=== PATIENT | male | born 1960 | race Caucasian/White ===

== ENCOUNTER 2016-04-01 17:04 | Inpatient (IN) | payer OTHER ==
[~2016-04-01] VITALS: Ht 170.2 cm; Wt 58.8 kg
--- NOTE | ~2016-04-01 | EKG ---
[address] [place] [address] ELECTROCARDIOGRAM REPORT Name: INDER MARS Room #: 460-P [facility] IN .R.#: [id number] Admission: 04/01/16 Attend Phys: Jason Delvalle MD Discharge: Date of : 56 Report #: [id number] THIS REPORT FOR: //name// [facility] ED Test Date: 2016-04-01 Test Time: 17:32:18 Pat Name: INDER MARS Department: Room: [facility] Gender: M Flavorings Compounder: Alton MENDOZA : 1960 Requested By: Ervin Feng Order Number: [id number] MD: Hector Hernández Measurements Intervals [place] Rate: 61 P: -3 RI: 189 QRS: 56 QRSD: 197 T: 223 QT: 508 QTc: 512 Interpretive Statements Sinus rhythm Left bundle branch block Compared to ECG 01/09/2016 15:22:15 Atrial premature complex(es) no longer present Electronically Signed On 04-02-2016 7:37:35 GRADES 9 THROUGH 12 TEACHER by Hector Hernández [email or web address] <ELECTRONICALLY SIGNED> By: Hector Hernández MD, [facility] 04/02/16 0737 31 31 Hector Hernández MD, [facility] /EPI
--- NOTE | ~2016-04-01 | HC ---
[facility] [place] [address] CONSULTATION Name: INDER MARS Jamey Room #: 460-P [facility] IN ..#: [id number] Admission: 04/01/16 Attend Phys: Brandon Whalen MD Discharge: Date of : 56 Report #: [id number] THIS REPORT FOR: //name// CC: Brandon Pinto REASON FOR CONSULTATION: Status post kidney transplantation. REASON FOR PRESENTATION: Back pain. HISTORY OF PRESENT ILLNESS: The patient is well known to me. He is a 55-year-old with previous history of Fabry's disease. He ended up with kidney transplantation 20 years ago. This was attributed to his Fabry's disease. Unfortunately, he has a history of noncompliance with his medications and had repeated strokes and hemiparesis. He was discharged from the hospital back in 12/2015 after staying in the rehab facility. He presented to the emergency room yesterday complaining of left-sided back and hip pain. He stated this back pain started a few days ago and was associated with radiation of the pain to the lower extremities. He denies any previous similar episodes. No reported urinary symptoms in the form of frequency, urgency or hesitancy. He was admitted for further evaluation and management of his back pain. We were consulted to manage his kidney transplantation. As I have stated, he is stable kidney transplant patient for the last 20 years. PAST MEDICAL HISTORY: 1. Fabry's disease. 2. Status post kidney transplantation. 3. Seizure disorder. 4. Remote history of CVAs. 5. Coronary artery disease. 6. Residual weakness. 7. Dysarthria. PAST SURGICAL HISTORY: 1. Right-sided Port-A-Cath. 2. Kidney transplantation in 1995. 3. AV fistula in the past. ALLERGIES: PENICILLIN. HOME MEDICATIONS: 1. Percocet. 2. Eliquis. 3. Aspirin. 4. Atorvastatin. 5. Cyclosporine. 6. Prednisone. [address] [address] CONSULTATION Name: INDER MARS Room #: 460-P [facility] IN [facility]#: [id number] Admission: 04/01/16 Attend Phys: Brandon Whalen MD Discharge: Date of : 56 Report #: [id number] FAMILY HISTORY: Very significant for Fabry's disease. REVIEW OF SYSTEMS: GENERAL: No fever or chills. CARDIOVASCULAR: No chest pain or palpitation. PULMONARY: No cough or hemoptysis. GASTROINTESTINAL: No nausea or vomiting. GENITOURINARY: No frequency, no urgency. PHYSICAL EXAMINATION: GENERAL: He is alert, oriented, in no apparent distress. VITAL SIGNS: Blood pressure is 124/86 and temperature is 36.7. HEAD AND NECK: No jugular venous distention, no bruit, no thyromegaly. CHEST: Clear to auscultation bilaterally. CARDIOVASCULAR: Regular, with no rub detected. ABDOMEN: Soft, nontender with no hepatosplenomegaly. LOWER EXTREMITIES: No edema. He has a right-sided Port-A-Cath. NEUROLOGIC: Residual right-sided weakness. LABORATORY DATA: Laboratory values reviewed. Creatinine is stable at 0.9. BNP is elevated. Chest x-ray, thoracic and lumbar spine were reviewed. ASSESSMENT, IMPRESSION AND PLAN: 1. Status post kidney transplantation. 2. Fabry's disease with multiple cerebrovascular accidents. 3. Coronary artery disease. 4. New back pain. 5. Images did not reveal any abnormalities and I am not really sure about the source of his back pain. 6. From the renal perspective, he is stable. We will continue with the same regimen for now. However, I have to verify the dose of his Sandimmune as he is currently on a very high dose of cyclosporine and this will need to be addressed. 7. I would not put much weight on his elevated BNP as he currently does not have any evidence of fluid overload. 8. Continue with other home medications. 9. Stable from my side to be discharged home if workup is nonrevealing. <ELECTRONICALLY SIGNED> By: Brianna Tanner MD 04/02/16 1030 0921 0958 Brianna Tanner MD /nt
[~2016-04-01 17:04] MED LIST: APAP500 PO; ASPIRIN325 PO; ATIVAN0.5 MG PO; BUTALB-APAP-CA1 EACH PO; CLARITIN10 MG PO; COUMADIN 5 MG TA5 M1 PO; CYCLOSPORINE25 MG PO; IMDUR 30 MG TAB30 M1 PO; LEXAPRO 10 MG T10 MG PO; MUCINEX TA600 MG/TA2 PO; NORVASC10 MG PO; NORVASC5 MG PO; OXYCODONE HCL 55 MG PO; PREDNISONE 5 MG5 M1 PO; ROBAXIN 750 MG750 M1 PO; TEGRETOL XR100 MG PO; TEGRETOL200 MG PO; VENTOLIN HFA 1818 GM INH; ZANTAC 150MG T150 MG PO; ZOCOR20 MG PO
[2016-04-01 17:06] VITALS: BP 142/76
[2016-04-01 18:04] LABS: ABSOLUTE NEUTROPHILS 3.8 thou/uL (1.4-8.2); BASOPHILS 0.7 % (0.0-2.0); EOSINOPHILS 1.1 % (0.0-3.0); HEMATOCRIT 36.7 % (42.0-52.0); HEMOGLOBIN 12.6 gm/dL (14.0-18.0); LYMPHOCYTES 21.9 % (24.0-44.0); MCH 30.5 pg (26.0-34.0); MCHC 34.3 % (28.0-37.0); MCV 88.8 fL (80.0-100.0); MONOCYTES 6.5 % (1.0-8.0); PLATELET COUNT 157 thou/uL (150-400); POLYS 69.8 % (36.0-66.0); RBC 4.13 mil/uL (4.50-6.00); RDW 16.7 % (10.5-14.5); WBC 5.5 thou/uL (4.0-11.0)
[2016-04-01 18:06] LABS: MANUAL DIFF NO
[2016-04-01 18:09] LABS: CALCIUM 8.7 mg/dL (8.5-10.1); CREATININE 0.9 mg/dL (0.6-1.3); POTASSIUM 4.7 mmol/L (3.5-5.1)
[2016-04-01 18:20] LABS: TROPONIN-I 0.05 ng/mL (<0.04-0.07)
[2016-04-01] MEDS ORDERED: ELIQUIS5 MG PO (19:22)
[2016-04-01 22:38] VITALS: BP 126/70
[2016-04-01 23:15] VITALS: BP 155/88
[2016-04-02 04:41] VITALS: BP 124/86
[2016-04-02 07:30] VITALS: BP 151/95
[2016-04-02 12:18] VITALS: BP 115/72
[2016-04-02 16:15] VITALS: BP 130/77
[2016-04-02 19:25] VITALS: BP 133/85
[2016-04-02] MEDS ORDERED: IMURAN 50MG TAB50 M1 PO (20:33)
[2016-04-03 04:58] VITALS: BP 128/74
[2016-04-03 05:56] LABS: ALBUMIN 3.3 g/dL (3.4-5.0); CALCIUM 8.8 mg/dL (8.5-10.1); CREATININE 0.9 mg/dL (0.6-1.3); MAGNESIUM 1.6 mg/dL (1.8-2.4); PHOSPHORUS 3.9 mg/dL (2.5-4.9); POTASSIUM 4.3 mmol/L (3.5-5.1); TOTAL BILIRUBIN 0.4 mg/dL (<0.1-1.0); TOTAL PROTEIN 6.1 g/dL (6.4-8.2)
[2016-04-03 08:00] VITALS: BP 123/69
[2016-04-03] MEDS ORDERED: LIDODERM 5%1 PATC1 TRANSDERM (11:21)
[2016-04-03 12:00] VITALS: BP 100/72
[2016-04-03 12:20] VITALS: BP 100/72
== END 2016-04-03 14:20 | disposition home or self-care (01) | DRG 552 ==
LOC: ER 17:04 → EROBS 21:51 → 4W 21:51
PROVIDERS: Hospitalist; Nurse Practitioner
DX: M54.9 Dorsalgia, unspecified (principal); Z94.0 Kidney transplant status; I69.951 Hemiplegia and hemiparesis following unspecified cerebrovascular disease affecting right dominant side; E75.21 Fabry (-Anderson) disease; L89.151 Pressure ulcer of sacral region, stage 1; E78.5 Hyperlipidemia, unspecified; I25.10 Atherosclerotic heart disease of native coronary artery without angina pectoris; G40.909 Epilepsy, unspecified, not intractable, without status epilepticus; Z88.0 Allergy status to penicillin; Z86.73 Personal history of transient ischemic attack (TIA), and cerebral infarction without residual deficits; I25.2 Old myocardial infarction; Z85.828 Personal history of other malignant neoplasm of skin; Z79.899 Other long term (current) drug therapy; Z79.82 Long term (current) use of aspirin; Z91.19 Patient's noncompliance with other medical treatment and regimen; I10 Essential (primary) hypertension
CPT/HCPCS: 10045

== ENCOUNTER 2016-06-02 22:08 | Inpatient (IN) | payer OTHER ==
[~2016-06-02] VITALS: Ht 170.2 cm; Wt 59.9 kg
[~2016-06-02 22:08] MED LIST changes: +ELIQUIS5 MG PO; +IMURAN 50MG TAB50 M1 PO; +LIDODERM 5%1 PATC1 TRANSDERM
[2016-06-02 22:09] VITALS: BP 149/90
[2016-06-02 23:24] LABS: ABSOLUTE NEUTROPHILS 2.6 thou/uL (1.4-8.2); BASOPHILS 0.8 % (0.0-2.0); EOSINOPHILS 1.7 % (0.0-3.0); HEMATOCRIT 32.8 % (42.0-52.0); HEMOGLOBIN 11.2 gm/dL (14.0-18.0); LYMPHOCYTES 41.6 % (24.0-44.0); MCH 31.1 pg (26.0-34.0); MCHC 34.1 g/dL (28.0-37.0); MCV 91.3 fL (80.0-100.0); MONOCYTES 7.4 % (1.0-8.0); PLATELET COUNT 134 thou/uL (150-400); POLYS 48.5 % (36.0-66.0); RBC 3.59 mil/uL (4.50-6.00); RDW 15.7 % (10.5-14.5); WBC 5.3 thou/uL (4.0-11.0)
[2016-06-02 23:27] LABS: CALCIUM 8.4 mg/dL (8.5-10.1); CREATININE 1.4 mg/dL (0.6-1.3); MAGNESIUM 1.6 mg/dL (1.8-2.4); POTASSIUM 4.2 mmol/L (3.5-5.1)
[2016-06-02 23:31] LABS: MANUAL DIFF NO
[2016-06-02 23:40] LABS: APTT 26.1 Seconds (24.5-32.8); PROTIME 10.7 Seconds (9.3-11.4)
[2016-06-03 02:25] VITALS: BP 139/86
[2016-06-03 02:34] VITALS: BP 136/76
[2016-06-03] MEDS ORDERED: FLOMAX0.4 MG PO (02:39)
[2016-06-03] MEDS ORDERED: IMURAN 50MG TAB50 M1 PO (02:41)
[2016-06-03] MEDS ORDERED: TEGRETOL200 MG PO (02:42)
[2016-06-03] MEDS ORDERED: ZANTAC 150MG T150 MG PO (02:44)
[2016-06-03] MEDS ORDERED: COLACE100 MG PO (02:47)
[2016-06-03] MEDS ORDERED: NORVASC10 MG PO (02:48)
[2016-06-03] MEDS ORDERED: NITROGLYCERIN0.4 MG SUBLING (02:49)
[2016-06-03] MEDS ORDERED: IMDUR 30 MG TAB30 M1 PO (02:50)
[2016-06-03 07:19] LABS: ALKALINE PHOSPHATASE 53 U/L (46-116); ANION GAP 8 mmol/L (7-16); BUN 21 mg/dL (7-18); CALCIUM 8.5 mg/dL (8.5-10.1); CHLORIDE 107 mmol/L (98-107); CHOLESTEROL 145 mg/dL (<200); CO2 26 mmol/L (21-32); CREATININE 1.1 mg/dL (0.6-1.3); GLUCOSE 87 mg/dL (70-99); HDL CHOLESTEROL 57 mg/dL (>40); LDL CHOLESTEROL 67 mg/dL (<100); SGOT 16 U/L (15-37); SGPT 13 U/L (30-65); SODIUM 141 mmol/L (136-145); TC:HDL 2.5 Ratio (Not establshd); TOTAL BILIRUBIN 0.3 mg/dL (<0.1-1.0); TOTAL PROTEIN 5.7 g/dL (6.4-8.2); TRIGLYCERIDE 108 mg/dL (<150); VLDL 22 mg/dL (<40)
[2016-06-03 08:00] VITALS: BP 119/80
[2016-06-03 16:00] VITALS: BP 139/87
[2016-06-03 20:55] VITALS: BP 125/74
[2016-06-04 00:10] VITALS: BP 119/68
[2016-06-04 05:00] VITALS: BP 114/78
[2016-06-04 08:00] VITALS: BP 152/81
[2016-06-04 10:20] VITALS: BP 152/81
== END 2016-06-04 14:42 | disposition home or self-care (01) | DRG 698 ==
LOC: ER 22:08 → EROBS 06-03 01:49 → 3N 06-03 01:49
PROVIDERS: Emergency Medicine; Nurse Practitioner
DX: T86.19 Other complication of kidney transplant (principal); N17.0 Acute kidney failure with tubular necrosis; E46 Unspecified protein-calorie malnutrition; Z94.0 Kidney transplant status; R20.8 Other disturbances of skin sensation; E83.42 Hypomagnesemia; N28.9 Disorder of kidney and ureter, unspecified; Z96.89 Presence of other specified functional implants; I10 Essential (primary) hypertension; E78.5 Hyperlipidemia, unspecified; I25.10 Atherosclerotic heart disease of native coronary artery without angina pectoris; R47.1 Dysarthria and anarthria; D64.9 Anemia, unspecified; I25.2 Old myocardial infarction; Z85.22 Personal history of malignant neoplasm of nasal cavities, middle ear, and accessory sinuses; Z87.891 Personal history of nicotine dependence; Z88.0 Allergy status to penicillin; Z68.20 Body mass index [BMI] 20.0-20.9, adult
CPT/HCPCS: 10096

== ENCOUNTER 2016-06-16 15:23 | Emergency (ER) | payer OTHER ==
[~2016-06-16] VITALS: Ht 175.3 cm; Wt 65.3 kg
--- NOTE | ~2016-06-16 | EKG ---
[address] [place] [address] ELECTROCARDIOGRAM REPORT Name: INDER MARS Jamey [id number] Admission: 06/16/16 Attend Phys: Discharge: 06/16/16 Date of : 56 Report #: [id number] THIS REPORT FOR: //name// [facility] ED Test Date: 2016-06-16 Test Time: 15:34:00 Pat Name: INDER MARS Department: Room: Gender: Shade Maker: HANY : 1960 Requested By: Osmin Peres Order Number: [id number] MD: Hector Hernández Measurements Intervals [place] Rate: 64 P: 27 NJ: 174 QRS: 54 QRSD: 187 T: 206 QT: 491 QTc: 507 Interpretive Statements Sinus rhythm Left bundle branch block Compared to ECG 04/01/2016 17:32:18 No significant changes Electronically Signed On 06-17-2016 8:46:32 CDT by Hector Hernández [email or web address] <ELECTRONICALLY SIGNED> By: Hector Hernández MD, [facility] 06/17/16 0846 1534 153 Hector Hernández MD, [facility] /EPI
[~2016-06-16 15:23] MED LIST changes: +COLACE100 MG PO; +FLOMAX0.4 MG PO; +NITROGLYCERIN0.4 MG SUBLING
[2016-06-16 15:52] LABS: ABSOLUTE NEUTROPHILS 3.9 thou/uL (1.4-8.2); BASOPHILS 0.7 % (0.0-2.0); EOSINOPHILS 1.2 % (0.0-3.0); HEMATOCRIT 36.5 % (42.0-52.0); HEMOGLOBIN 12.4 gm/dL (14.0-18.0); LYMPHOCYTES 18.9 % (24.0-44.0); MCH 31.3 pg (26.0-34.0); MONOCYTES 4.6 % (1.0-8.0); PLATELET COUNT 167 thou/uL (150-400); POLYS 74.6 % (36.0-66.0); RBC 3.97 mil/uL (4.50-6.00); RDW 15.1 % (10.5-14.5); WBC 5.2 thou/uL (4.0-11.0)
[2016-06-16 15:53] LABS: MANUAL DIFF NO
[2016-06-16 15:56] LABS: ANION GAP 6 mmol/L (7-16); BUN 18 mg/dL (7-18); CALCIUM 8.7 mg/dL (8.5-10.1); CHLORIDE 104 mmol/L (98-107); CO2 28 mmol/L (21-32); GLUCOSE 135 mg/dL (74-106); POTASSIUM 4.3 mmol/L (3.5-5.1); SODIUM 138 mmol/L (136-145)
[2016-06-16 16:08] LABS: NT-PRO BRAIN NAT PEPTIDE 757 pg/mL (<300); TROPONIN-I < 0.04 ng/mL (<0.04-0.07)
== END 2016-06-16 20:17 | disposition home or self-care (01) ==
LOC: ER 15:23
PROVIDERS: Emergency Medicine
DX: R09.89 Other specified symptoms and signs involving the circulatory and respiratory systems (principal); R07.89 Other chest pain; I25.2 Old myocardial infarction; I10 Essential (primary) hypertension; I25.10 Atherosclerotic heart disease of native coronary artery without angina pectoris; Z85.828 Personal history of other malignant neoplasm of skin; Z86.73 Personal history of transient ischemic attack (TIA), and cerebral infarction without residual deficits; Z95.0 Presence of cardiac pacemaker; Z88.0 Allergy status to penicillin; Z87.891 Personal history of nicotine dependence

== ENCOUNTER 2016-07-08 12:41 | Inpatient (IN) | payer OTHER ==
[~2016-07-08] VITALS: Ht 170.2 cm; Wt 81.6 kg
--- NOTE | ~2016-07-08 | HC ---
[facility] [place] [address] CONSULTATION Name: INDER MARS Jamey Room #: 445-P [facility] IN ..#: [id number] Admission: 07/08/16 Attend Phys: Jeffery Saucedo MD Discharge: 07/10/16 Date of : 56 Report #: [id number] THIS REPORT FOR: //name// CC: Keegan Saucedo REASON FOR CONSULTATION: Kidney transplant. REASON FOR PRESENTATION: Altered mental status. HISTORY OF PRESENT ILLNESS: This is a very well known patient to me. He is a 56-year-old with the kidney transplant due to Fabry's disease. He has had numerous admissions in the past with similar presentations. He had his kidney transplant about 21 years. He is maintained on cyclosporine and Imuran and along with low dose prednisone. He suffered some complications related to his Fabry's disease including a right-sided CVA and weakness. He presented with altered mental status, repeated falls and was admitted for further evaluation and management. Initial CT did not reveal any acute abnormalities. He denies any head trauma. He lives with some family members that demanded that he come to the hospital for further evaluation and management and it does look like that the patient has some social issues related to his family members taking care of him. PAST MEDICAL HISTORY: 1. Status post kidney transplantation due to Fabry's disease. 2. Chronic immunosuppression. 3. Seizure disorder. 4. Cerebrovascular accident with right-sided residual weakness. 5. Coronary artery disease. 6. Dysphagia. PAST SURGICAL HISTORY: 1. Right-sided port placement. 2. Kidney transplantation in 1995. 3. AV fistula. ALLERGIES: PENICILLIN. MEDICATIONS: 1. Eliquis. 2. Aspirin. 3. Ativan. 4. Atorvastatin. 5. Tegretol. 6. Celexa 7. Cyclosporine. 8. Flomax. [facility] [address] [place] [address] CONSULTATION Name: JERADINDER Room #: 445-P [facility]#: [id number] Admission: 07/08/16 Attend Phys: Jeffery Saucedo MD Discharge: 07/10/16 Date of : 56 Report #: [id number] 9. Imuran. 10. Isosorbide mononitrate. 11. Norvasc. 12. Prednisone. FAMILY HISTORY: Significant for end-stage renal disease. He had both brother that have end-stage renal disease. SOCIAL HISTORY: He lives with some family members. No drug or alcohol abuse. ALLERGIES: PENICILLIN. REVIEW OF SYSTEMS: GENERAL: Falls. CARDIOVASCULAR: No chest pain or palpitation. PULMONARY: No cough or hemoptysis. GASTROINTESTINAL: No nausea or vomiting. GENITOURINARY: No frequency or urgency. NEUROLOGICAL: No headache, no loss of consciousness, however, he did have repeated falls, residual right-sided weakness, dysphagia. PHYSICAL EXAMINATION: GENERAL: He is alert, oriented at his baseline since he is well known to me. VITAL SIGNS: Temperature 36.8, blood pressure 139/88. HEAD AND NECK: No jugular venous distention, no bruit, no thyromegaly. He is dysphagic. SKIN: Numerous skin lesions. CARDIOVASCULAR: Regular with no rub detected. ABDOMEN: Soft, nontender with no hepatosplenomegaly. LOWER EXTREMITIES: No edema with intact peripheral pulses. NEUROLOGICAL: Significant weakness in the side. LABORATORY DATA: Reviewed. His creatinine is stable and at baseline. CT with no acute finding. ASSESSMENT, IMPRESSION AND PLAN: 1. Status post kidney transplantation with stable kidney function. 2. Fabry's disease. 3. Hypertension. 4. Hyperlipidemia. 5. Remote history of stroke and right-sided weakness. 6. The patient seems to be stable from the renal perspective, we will continue with the same immunosuppressive medications. His cyclosporine dose is quite large for given the fact that he has his kidney transplantation about 20 years ago. I will verify with his primary veneer taping machine offbearer regarding the dose of his [address] [address] CONSULTATION Name: INDER MARS Jamey Room #: 445-P [facility] IN [facility].#: [id number] Admission: 07/08/16 Attend Phys: Jeffery Saucedo MD Discharge: 07/10/16 Date of : 56 Report #: [id number] cyclosporine, he is to be maintained on the current Imuran which is low dose at 50 mg and he was also maintained on low dose prednisone daily. 7. Stroke workup progresseive. 8. There seems to be a major social issues with repeated patterns of admissions for unclear reasons as the patient lives with his family members, I would recommend psych social worker consultation and placement. <ELECTRONICALLY SIGNED> By: Brianna Tanner MD 07/12/16 1640 1012 1231 Brianna Tanner MD /nt
--- NOTE | ~2016-07-08 | EEG ---
[facility] [place] [address] ELECTROENCEPHALOGRAM Name: INDER MARS Room #: 445-P [facility] IN .R.#: [id number] Admission: 07/08/16 Attend Phys: Jeffery Saucedo MD Discharge: 07/10/16 Date of : 56 Report #: [id number] THIS REPORT FOR: //name// CC: Keegan Saucedo DATE OF SERVICE: 07/10/2016 This patient is being evaluated for altered mental status. EEG was done by placing the electrodes by standard 10-20 system of electrode placement. Both referential and sequential montages were used for recording. Background activity in this patient's EEG is about 8-9 Hz and 30 microvolts. It is a symmetrical activity. It is intermixed with theta range slowing on both sides. The patient appeared to be drowsy during part of this EEG and that is associated with bilateral slowing and intermixed vertex sharp waves. Throughout the record, no active epileptiform activity was noticed. Photic stimulation is unremarkable. IMPRESSION: This patient's EEG is intermixed with moderate amount of bilateral slowing. That is a nonspecific abnormality, which can occur with encephalopathy, dementia, effect of psychotropic medication, etc. Clinical correlation is recommended. Thank you very much for this referral. By: 1848 [id number] Jaison Marcus MD /nt
--- NOTE | ~2016-07-08 | EKG ---
[place] [address] [employer] [place] [address] ELECTROCARDIOGRAM REPORT Name: MARSINDER Davis Room #: 445-P ADM IN M.R.#: [id number] Admission: 07/08/16 Attend Phys: Jeffery Saucedo MD Discharge: Date of : 56 Report #: [id number] THIS REPORT FOR: //name// [facility] ED Test Date: 2016-07-08 Test Time: 12:57:00 Pat Name: INDER MARS Department: Room: [facility] Gender: M Travel Money Advisor: MZOOK : 1960 Requested By: Mary Kay Briggs Order Number: [id number] MD: Hector Hernández Measurements Intervals [place] Rate: 60 P: GA: 160 QRS: 66 QRSD: 202 T: 211 QT: 523 QTc: 523 Interpretive Statements Sinus rhythm Left bundle branch block Baseline wander in lead(s) V2 Compared to ECG 06/16/2016 15:34:00 no significant change Electronically Signed On 07-09-2016 8:29:42 CDT by Hector Hernández [email or web address] <ELECTRONICALLY SIGNED> By: Hector Hernández MD, [facility] 07/09/16 0829 1257 1257 Hector Hernández MD, [facility] /EPI
[2016-07-08 12:42] VITALS: BP 143/80
[2016-07-08 13:17] LABS: ABSOLUTE NEUTROPHILS 3.9 thou/uL (1.4-8.2); BASOPHILS 0.6 % (0.0-2.0); EOSINOPHILS 1.5 % (0.0-3.0); HEMATOCRIT 34.9 % (42.0-52.0); HEMOGLOBIN 12.1 gm/dL (14.0-18.0); LYMPHOCYTES 20.6 % (24.0-44.0); MCH 31.8 pg (26.0-34.0); MCHC 34.7 g/dL (28.0-37.0); MCV 91.7 fL (80.0-100.0); MONOCYTES 10.1 % (1.0-8.0); PLATELET COUNT 161 thou/uL (150-400); POLYS 67.2 % (36.0-66.0); RDW 15.4 % (10.5-14.5); WBC 5.8 thou/uL (4.0-11.0)
[2016-07-08 13:19] LABS: MANUAL DIFF NO
[2016-07-08 13:27] LABS: CALCIUM 8.7 mg/dL (8.5-10.1); POTASSIUM 4.3 mmol/L (3.5-5.1)
[2016-07-08 15:15] VITALS: BP 141/78
[2016-07-08 16:00] VITALS: BP 148/88
[2016-07-08 16:26] VITALS: BP 148/88
[2016-07-08 19:35] VITALS: BP 109/74
[2016-07-09 03:50] VITALS: BP 113/80
[2016-07-09 08:05] VITALS: BP 139/88
[2016-07-09 12:52] VITALS: BP 102/66
[2016-07-09 12:59] LABS: URINE BILIRUBIN NEGATIVE (Negative); URINE BLOOD NEGATIVE (Negative); URINE COLOR YELLOW; URINE GLUCOSE-RANDOM* NEGATIVE (Negative); URINE KETONES NEGATIVE (Negative); URINE LEUKOCYTES-REFLEX NEGATIVE (Negative); URINE PROTEIN (DIPSTICK) NEGATIVE (Negative); URINE SPECIFIC GRAVITY 1.015 (1.003-1.035)
[2016-07-09 15:15] VITALS: BP 145/69
[2016-07-09 19:34] VITALS: BP 137/84
[2016-07-09 20:04] VITALS: BP 144/87
[2016-07-10 04:40] VITALS: BP 109/73
[2016-07-10 07:42] VITALS: BP 89/59
[2016-07-10 10:46] VITALS: BP 89/59
[2016-07-10] MEDS ORDERED: KEPPRA 500 MG500 M1 PO (12:36)
== END 2016-07-10 14:45 | disposition home or self-care (01) | DRG 101 ==
LOC: ER 12:41 → EROBS 14:09 → 4S 14:09 → EROBS 15:24 → 4S 15:33
PROVIDERS: Emergency Medicine; Internal Medicine
DX: R56.9 Unspecified convulsions (principal); I69.351 Hemiplegia and hemiparesis following cerebral infarction affecting right dominant side; Z94.0 Kidney transplant status; R41.82 Altered mental status, unspecified; R13.10 Dysphagia, unspecified; E75.21 Fabry (-Anderson) disease; I25.10 Atherosclerotic heart disease of native coronary artery without angina pectoris; I25.2 Old myocardial infarction; Z95.0 Presence of cardiac pacemaker; Z85.828 Personal history of other malignant neoplasm of skin; Z88.0 Allergy status to penicillin; Z87.891 Personal history of nicotine dependence; Z84.1 Family history of disorders of kidney and ureter
CPT/HCPCS: 10100

== ENCOUNTER 2016-07-30 22:53 | Emergency (ER) | payer OTHER ==
[~2016-07-30] VITALS: Ht 170.2 cm; Wt 61.2 kg
--- NOTE | ~2016-07-30 | EKG ---
[place] [address] [facility] [place] [address] ELECTROCARDIOGRAM REPORT Name: INDER MARS Jamey [id number] Admission: 07/30/16 Attend Phys: Discharge: 07/31/16 Date of : 56 Report #: [id number] THIS REPORT FOR: //name// [facility] ED Test Date: 2016-07-30 Test Time: 22:59:51 Pat Name: INDER MARS Department: Room: Gender: Manager Lab: [place] : 1960 Requested By: Lauren Rendon Order Number: [id number] MD: Hector Hernández Measurements Intervals [place] Rate: 61 P: 17 NJ: 181 QRS: 48 QRSD: 193 T: 208 QT: 510 QTc: 514 Interpretive Statements Sinus rhythm Left bundle-branch block No change from previously. Electronically Signed On 07-31-2016 7:57:50 CDT by Hector Hernández [email or web address] <ELECTRONICALLY SIGNED> By: Hector Hernández MD, [facility] 07/31/16 0757 2259 2259 Hector Hernández MD, [facility] /EPI
[~2016-07-30 22:53] MED LIST changes: +KEPPRA 500 MG500 M1 PO
[2016-07-30 23:37] LABS: ABSOLUTE NEUTROPHILS 3.7 thou/uL (1.4-8.2); BASOPHILS 0.7 % (0.0-2.0); EOSINOPHILS 1.8 % (0.0-3.0); HEMOGLOBIN 10.8 gm/dL (14.0-18.0); LYMPHOCYTES 26.9 % (24.0-44.0); MCH 31.4 pg (26.0-34.0); MCHC 33.9 g/dL (28.0-37.0); MCV 92.6 fL (80.0-100.0); MONOCYTES 9.4 % (1.0-8.0); PLATELET COUNT 170 thou/uL (150-400); POLYS 61.2 % (36.0-66.0); RBC 3.46 mil/uL (4.50-6.00); RDW 14.6 % (10.5-14.5)
[2016-07-30 23:38] LABS: MANUAL DIFF NO
[2016-07-30 23:42] LABS: ANION GAP 6 mmol/L (7-16); BUN 20 mg/dL (7-18); CALCIUM 8.4 mg/dL (8.5-10.1); CHLORIDE 105 mmol/L (98-107); CO2 27 mmol/L (21-32); CREATININE 1.1 mg/dL (0.7-1.3); GLUCOSE 89 mg/dL (74-106); SODIUM 138 mmol/L (136-145)
[2016-07-30 23:50] LABS: APTT 71.6 Seconds (24.5-32.8); PROTIME 10.7 Seconds (9.3-11.4)
[2016-07-30 23:52] LABS: SALICYLATE < 2.8 mg/dL (2.8-20.0); TROPONIN-I 0.07 ng/mL (<0.04-0.07)
[2016-07-30 23:54] LABS: LARGE PLATELETS RARE
[2016-08-01] MEDS ORDERED: CARBAMAZEPINE200 M2 PO (21:35)
[2016-08-01] MEDS ORDERED: SIMVASTATIN10 MG PO (21:35)
== END 2016-07-31 01:36 | disposition home or self-care (01) ==
LOC: ER 22:53
PROVIDERS: Emergency Medicine
DX: H93.19 Tinnitus, unspecified ear (principal); R20.2 Paresthesia of skin; I25.2 Old myocardial infarction; I10 Essential (primary) hypertension; I25.10 Atherosclerotic heart disease of native coronary artery without angina pectoris; Z86.73 Personal history of transient ischemic attack (TIA), and cerebral infarction without residual deficits; Z88.0 Allergy status to penicillin; Z87.891 Personal history of nicotine dependence

== ENCOUNTER 2016-08-01 19:56 | Emergency (ER) | payer OTHER ==
[~2016-08-01] VITALS: Ht 170.2 cm; Wt 72.6 kg
--- NOTE | ~2016-08-01 | EKG ---
[address] [address] ELECTROCARDIOGRAM REPORT Name: INDER MARS Jamey [id number] Admission: 08/01/16 Attend Phys: Discharge: 08/01/16 Date of : 56 Report #: [id number] THIS REPORT FOR: //name// [facility] ED Test Date: 2016-08-01 Test Time: 20:12:33 Pat Name: INDER MARS Department: Room: Gender: M Sales Enablement Lead: 1960 : 1960 Requested By: Lauren Rendon Order Number: [id number] MD: Hector Hernández Measurements Intervals [place] Rate: 60 P: -15 SD: 176 QRS: 52 QRSD: 186 T: 174 QT: 506 QTc: 506 Interpretive Statements Sinus rhythm Left bundle-branch block Compared to ECG 07/30/2016 22:59:51 No significant changes Electronically Signed On 08-04-2016 7:06:44 CDT by Hector Hernández [email or web address] <ELECTRONICALLY SIGNED> By: Hector Hernández MD, [facility] 08/04/16 0706 11 11 Hector Hernández MD, [facility] /EPI
[2016-08-01 20:38] LABS: ABSOLUTE NEUTROPHILS 3.2 thou/uL (1.4-8.2); BASOPHILS 0.5 % (0.0-2.0); EOSINOPHILS 1.1 % (0.0-3.0); HEMATOCRIT 35.5 % (42.0-52.0); HEMOGLOBIN 12.1 gm/dL (14.0-18.0); LYMPHOCYTES 27.4 % (24.0-44.0); MANUAL DIFF NO; MCH 31.1 pg (26.0-34.0); MCHC 33.9 g/dL (28.0-37.0); MCV 91.7 fL (80.0-100.0); MONOCYTES 9.3 % (1.0-8.0); PLATELET COUNT 176 thou/uL (150-400); POLYS 61.7 % (36.0-66.0); RBC 3.87 mil/uL (4.50-6.00); RDW 14.9 % (10.5-14.5); WBC 5.1 thou/uL (4.0-11.0)
[2016-08-01 20:42] LABS: ANION GAP 6 mmol/L (7-16); BUN 18 mg/dL (7-18); CHLORIDE 106 mmol/L (98-107); CO2 27 mmol/L (21-32); CREATININE 1.1 mg/dL (0.7-1.3); GLUCOSE 96 mg/dL (74-106); POTASSIUM 4.5 mmol/L (3.5-5.1); SODIUM 139 mmol/L (136-145)
[2016-08-01 20:46] LABS: ALBUMIN 3.3 g/dL (3.4-5.0); ALKALINE PHOSPHATASE 79 U/L (46-116); DIRECT BILIRUBIN < 0.1 mg/dL (<0.1-0.3); SGOT 20 U/L (15-37); SGPT 12 U/L (30-65); TOTAL BILIRUBIN 0.4 mg/dL (<0.1-1.0)
[2016-08-01 21:31] LABS: URINE BILIRUBIN NEGATIVE (Negative); URINE BLOOD NEGATIVE (Negative); URINE COLOR YELLOW; URINE GLUCOSE-RANDOM* NEGATIVE (Negative); URINE KETONES NEGATIVE (Negative); URINE LEUKOCYTES-REFLEX NEGATIVE (Negative); URINE PROTEIN (DIPSTICK) NEGATIVE (Negative); URINE UROBILINOGEN >= 8.0 E.U./dl (0.2-1.0)
[2016-08-01] MEDS ORDERED: SIMVASTATIN10 MG PO (21:35)
[2016-08-01] MEDS ORDERED: CARBAMAZEPINE200 M2 PO (21:35)
== END 2016-08-01 23:22 | disposition home or self-care (01) ==
LOC: ER 19:56
PROVIDERS: Emergency Medicine
DX: R53.1 Weakness (principal); M79.1 Myalgia; Z86.73 Personal history of transient ischemic attack (TIA), and cerebral infarction without residual deficits; I25.2 Old myocardial infarction; Z95.0 Presence of cardiac pacemaker; I10 Essential (primary) hypertension; E78.5 Hyperlipidemia, unspecified; Z94.0 Kidney transplant status; Z88.0 Allergy status to penicillin; F17.210 Nicotine dependence, cigarettes, uncomplicated; F10.99 Alcohol use, unspecified with unspecified alcohol-induced disorder

== ENCOUNTER 2016-08-15 19:57 | Emergency (ER) | payer OTHER ==
[~2016-08-15] VITALS: Ht 170.2 cm; Wt 72.6 kg
[~2016-08-15 19:57] MED LIST changes: +CARBAMAZEPINE200 M2 PO; +SIMVASTATIN10 MG PO
== END 2016-08-15 22:21 | disposition home or self-care (01) ==
LOC: ER 19:57
DX: Z48.01 Encounter for change or removal of surgical wound dressing (principal); I10 Essential (primary) hypertension; I25.10 Atherosclerotic heart disease of native coronary artery without angina pectoris; I69.951 Hemiplegia and hemiparesis following unspecified cerebrovascular disease affecting right dominant side; I25.2 Old myocardial infarction; Z85.828 Personal history of other malignant neoplasm of skin; Z86.73 Personal history of transient ischemic attack (TIA), and cerebral infarction without residual deficits; Z95.0 Presence of cardiac pacemaker; Z94.0 Kidney transplant status

== ENCOUNTER 2016-08-22 17:57 | Emergency (ER) | payer OTHER ==
[~2016-08-22] VITALS: Ht 175.3 cm; Wt 65.8 kg
[2016-08-22] MEDS ORDERED: ROBAXIN500 MG PO (18:38)
== END 2016-08-22 18:52 | disposition home or self-care (01) ==
LOC: ER 17:57
DX: M62.831 Muscle spasm of calf (principal); I10 Essential (primary) hypertension; I25.10 Atherosclerotic heart disease of native coronary artery without angina pectoris; F10.99 Alcohol use, unspecified with unspecified alcohol-induced disorder; I25.2 Old myocardial infarction; Z86.73 Personal history of transient ischemic attack (TIA), and cerebral infarction without residual deficits; Z95.0 Presence of cardiac pacemaker; Z94.0 Kidney transplant status; Z87.891 Personal history of nicotine dependence; Z88.0 Allergy status to penicillin

== ENCOUNTER 2016-08-24 21:35 | Observation (INO) | payer OTHER ==
[~2016-08-24] VITALS: Ht 170.2 cm; Wt 59.4 kg
[~2016-08-24 21:35] MED LIST changes: +ROBAXIN500 MG PO
[2016-08-24 21:36] VITALS: BP 112/73
[2016-08-24 22:03] LABS: ABSOLUTE NEUTROPHILS 4.4 thou/uL (1.4-8.2); EOSINOPHILS 0.9 % (0.0-3.0); HEMATOCRIT 30.3 % (42.0-52.0); HEMOGLOBIN 10.3 gm/dL (14.0-18.0); LYMPHOCYTES 14.6 % (24.0-44.0); MCH 31.1 pg (26.0-34.0); MCV 91.4 fL (80.0-100.0); MONOCYTES 11.4 % (1.0-8.0); PLATELET COUNT 225 thou/uL (150-400); POLYS 72.1 % (36.0-66.0); RBC 3.31 mil/uL (4.50-6.00); RDW 15.2 % (10.5-14.5); WBC 6.2 thou/uL (4.0-11.0)
[2016-08-24 22:05] LABS: MANUAL DIFF NO
[2016-08-24 22:10] LABS: CALCIUM 8.9 mg/dL (8.5-10.1); POTASSIUM 4.4 mmol/L (3.5-5.1)
[2016-08-24 22:14] LABS: ALBUMIN 2.9 g/dL (3.4-5.0); TOTAL BILIRUBIN 0.5 mg/dL (<0.1-1.0); TOTAL PROTEIN 6.8 g/dL (6.4-8.2)
[2016-08-24 23:48] VITALS: BP 127/76
[2016-08-25 01:46] VITALS: BP 138/87
[2016-08-25 03:50] VITALS: BP 145/77
[2016-08-25 04:09] LABS: PROTIME 10.7 Seconds (9.3-11.4)
[2016-08-25 04:19] LABS: HEMATOCRIT 30.3 % (42.0-52.0); HEMOGLOBIN 10.3 gm/dL (14.0-18.0); MCV 91.3 fL (80.0-100.0); RBC 3.32 mil/uL (4.50-6.00); RDW 14.9 % (10.5-14.5); WBC 5.3 thou/uL (4.0-11.0)
[2016-08-25 05:35] LABS: CALCIUM 8.9 mg/dL (8.5-10.1); CREATININE 0.9 mg/dL (0.7-1.3); POTASSIUM 3.9 mmol/L (3.5-5.1)
[2016-08-25 07:55] VITALS: BP 126/78
[2016-08-25 12:03] LABS: URINE BILIRUBIN NEGATIVE (Negative); URINE BLOOD NEGATIVE (Negative); URINE COLOR YELLOW; URINE GLUCOSE-RANDOM* NEGATIVE (Negative); URINE KETONES NEGATIVE (Negative); URINE NITRITE NEGATIVE (Negative); URINE PROTEIN (DIPSTICK) NEGATIVE (Negative)
[2016-08-25 16:00] VITALS: BP 127/76
[2016-08-25] MEDS ORDERED: KEPPRA 500 MG500 M1 PO (16:10)
[2016-08-25 20:00] VITALS: BP 132/87
[2016-08-26 03:13] VITALS: BP 132/81
[2016-08-26 05:32] LABS: HEMATOCRIT 27.6 % (42.0-52.0); HEMOGLOBIN 9.5 gm/dL (14.0-18.0); MCH 30.9 pg (26.0-34.0); MCHC 34.2 g/dL (28.0-37.0); MCV 90.2 fL (80.0-100.0); RBC 3.06 mil/uL (4.50-6.00); RDW 14.8 % (10.5-14.5); WBC 5.2 thou/uL (4.0-11.0)
[2016-08-26 07:20] VITALS: BP 141/87
[2016-08-26] MEDS ORDERED: ACETAMINOPHEN-1 EAC1 PO (10:32)
[2016-08-26] MEDS ORDERED: COUMADIN 4 MG TA4 M1 PO (10:33)
[2016-08-26 11:19] VITALS: BP 116/72
[2016-08-26 15:22] VITALS: BP 117/80
[2016-08-26 17:03] VITALS: BP 117/80
== END 2016-08-26 20:00 | disposition home or self-care (01) ==
LOC: ER 21:35 → EROBS 23:26 → 5S 23:26
PROVIDERS: Hospitalist; Nurse Practitioner Family; Physician Assistant
DX: S70.01XA Contusion of right hip, initial encounter (principal); I10 Essential (primary) hypertension; E78.5 Hyperlipidemia, unspecified; I63.9 Cerebral infarction, unspecified; R56.9 Unspecified convulsions; Z94.0 Kidney transplant status

== ENCOUNTER 2016-08-29 19:33 | Emergency (ER) | payer OTHER ==
[~2016-08-29] VITALS: Ht 170.2 cm; Wt 80.7 kg
[~2016-08-29 19:33] MED LIST changes: +ACETAMINOPHEN-1 EAC1 PO; +COUMADIN 4 MG TA4 M1 PO
[2016-08-29 21:23] LABS: ABSOLUTE NEUTROPHILS 3.5 thou/uL (1.4-8.2); EOSINOPHILS 2.7 % (0.0-3.0); HEMATOCRIT 29.7 % (42.0-52.0); HEMOGLOBIN 10.1 gm/dL (14.0-18.0); LYMPHOCYTES 16.5 % (24.0-44.0); MCH 30.5 pg (26.0-34.0); MCV 89.8 fL (80.0-100.0); MONOCYTES 9.4 % (1.0-8.0); PLATELET COUNT 263 thou/uL (150-400); POLYS 70.4 % (36.0-66.0); RBC 3.31 mil/uL (4.50-6.00); RDW 15.2 % (10.5-14.5)
[2016-08-29 21:25] LABS: MANUAL DIFF NO
[2016-08-29 21:28] LABS: CALCIUM 8.6 mg/dL (8.5-10.1); CREATININE 0.8 mg/dL (0.7-1.3); POTASSIUM 4.4 mmol/L (3.5-5.1)
[2016-08-29 21:59] LABS: INR 1.1; PROTIME 11.9 Seconds (9.3-11.4)
[2016-08-29 22:01] LABS: APTT > 198.4 Seconds (24.5-32.8)
[2016-08-29] MEDS ORDERED: SENOKOT-S1 TA1 PO (23:44)
[2016-08-29] MEDS ORDERED: NORCO 5-325 TA1 EACH PO (23:44)
== END 2016-08-30 01:10 | disposition home or self-care (01) ==
LOC: ER 19:33
PROVIDERS: Emergency Medicine
DX: K66.1 Hemoperitoneum (principal); I10 Essential (primary) hypertension; F10.99 Alcohol use, unspecified with unspecified alcohol-induced disorder; I25.10 Atherosclerotic heart disease of native coronary artery without angina pectoris; I25.2 Old myocardial infarction; Z86.73 Personal history of transient ischemic attack (TIA), and cerebral infarction without residual deficits; Z95.0 Presence of cardiac pacemaker; Z94.0 Kidney transplant status; Z87.891 Personal history of nicotine dependence; Z88.0 Allergy status to penicillin